=== PATIENT | female | born 1960 ===

== ENCOUNTER 2016-12-14 21:05 | Emergency (ER) | payer OTHER ==
[2016-12-14 21:12] VITALS: BMI 38.4
[2016-12-14 21:13] VITALS: RESP 20
--- NOTE | 2016-12-14 21:29 | C.PDOC ---
History Of Present Illness 56 y/o female presents to the ED with complaint of scratch to back of leg since this afternoon. . Pt states a friend's dog scratched the back of her left thigh and has had continuous bleeding since. No other complaints at this time. dog's immunizations up to date. pt not sure of last tetanus. Time Seen by Provider: 12/14/16 21:21 Chief Complaint (Nursing): Abnormal Skin Integrity History Per: Patient History/Exam Limitations: no limitations Onset/Duration Of Symptoms: Mins Current Symptoms Are (Timing): Still Present Location Of Injury: Left: Leg Severity: Mild Recent travel outside of the [place]: No Past Medical History Reviewed: Historical Data, Nursing Documentation, Vital Signs Vital Signs: Last Vital Signs Temp 97.8 F 12/14/16 21:12 Pulse 86 12/14/16 21:12 Resp 20 12/14/16 21:12 BP 164/111 H 12/14/16 21:12 Pulse Ox 99 12/14/16 22:41 Family History: States: Unknown Family Hx - Social History Hx Alcohol Use: No Hx Substance Use: No Review Of Systems Skin: Positive for: Other (scratch to back of left knee, bleeding) Physical Exam - Physical Exam Appears: Non-toxic, No Acute Distress Skin: Warm, Dry, No Rash, Other (3-4 cm horizontal scratch to distal posterior thigh, with 1 area with persistent oozing) Head: Atraumatic, Normacephalic Extremity: Normal ROM, No Swelling Neurological/Psych: Oriented x3, Normal Motor, Normal Sensation ED Course And Treatment O2 Sat by Pulse Oximetry: 99 (room air) Pulse Ox Interpretation: Normal Laceration - Laceration Repair thigh Wound Length (In cm): 3-4 cm shallow scrathc wiht 1 cm area of oozing. Description Of Wound: Linear Wound Cleansed With: Betadine Wound Examination: Irrigated With Saline Wound Closure: Suture Suture Technique And Material Used: Running, Interrupted, Nylon (2 sututes of 5- 0) Wound Complexity: Simple Medical Decision Making Medical Decision Making: pressure bandage applied for approximately 30 minutes, wound still oozing after this time. 2 sutures put into area with cessation of blleding. bacitracin and bandage applied. Disposition - Disposition Referrals: Marlin Diaz MD [Staff Provider] - Disposition: HOME/ ROUTINE Disposition Time: 22:43 Condition: IMPROVED Additional Instructions: Keep wound clean and dry. Take Augmentin as directed. Wash and dry wound daily , apply antibiotic ointment. Suture removal in one week. Return to ER for any sign of infection. 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 - Scribe Statement The provider has reviewed the documentation as recorded by the Scribjodi Varela All medical record entries made by the Brooks were at my direction and personally dictated by me. I have reviewed the chart and agree that the record accurately reflects my personal performance of the history, physical exam, medical decision making, and the department course for this patient. I have also personally directed, reviewed, and agree with the discharge instructions and disposition.
[2016-12-14] MEDS ORDERED: Bacitracin 500 Units/gm Oint Foilpak UD ONE (22:38)
[2016-12-14] MEDS ORDERED: Bacitracin 500 Units/gm Oint Foilpak UD TOP ONE (22:39)
[2016-12-14 22:57] VITALS: BP 158/91; PULSE 82; TEMP 97.3; O2SAT 98
== END 2016-12-14 22:57 | disposition home or self-care (01) ==
LOC: C.ER 21:05
DX: S70.312A Abrasion, left thigh, initial encounter (principal); X58.XXXA Exposure to other specified factors, initial encounter

== ENCOUNTER 2016-12-23 16:37 | Emergency (ER) | payer OTHER ==
[2016-12-23 16:37] VITALS: BMI 38.4
[2016-12-23 16:53] VITALS: TEMP 98.2
--- NOTE | 2016-12-23 17:02 | C.PDOC ---
History Of Present Illness 56 yo female come in for scheduled suture removal from Left posterior knee placed here in ED on 12/14/16 after laceration was closed with suture. Pt denies any active complaints, denies fever, chills, wound redness, discharge, denies weakness, sensory or vascular deficits to affected leg. Ambulate to ED for evaluation, not in any apparent distress. Pt admits, " did not take antibiotic was given here on 12/14/16 yet ". Time Seen by Provider: 12/23/16 16:55 Chief Complaint (Nursing): Suture/Staple Removal History Per: Patient Past Medical History Reviewed: Historical Data, Nursing Documentation, Vital Signs Vital Signs: Last Vital Signs Temp 98.2 F 12/23/16 16:51 Pulse 78 12/23/16 16:51 Resp 19 12/23/16 16:51 BP 145/100 H 12/23/16 16:51 Pulse Ox 99 12/23/16 17:03 - Medical History PMH: HTN Family History: States: No Known Family Hx - Social History Hx Alcohol Use: No Hx Substance Use: No - Immunization History Hx Tetanus Toxoid Vaccination: Yes Hx Influenza Vaccination: No Hx Pneumococcal Vaccination: No Review Of Systems Except As Marked, All Systems Reviewed And Found Negative. Constitutional: Negative for: Fever, Chills Eyes: Negative for: Vision Change ENT: Negative for: Throat Pain Cardiovascular: Negative for: Chest Pain, Palpitations Respiratory: Negative for: Cough, Shortness of Breath Gastrointestinal: Negative for: Nausea, Vomiting, Abdominal Pain Musculoskeletal: Negative for: Leg Pain Skin: Positive for: Lesions Neurological: Negative for: Weakness, Numbness, Altered Mental Status, Headache , Dizziness Physical Exam - Physical Exam Appears: Well, Non-toxic, No Acute Distress Skin: Normal Color, Warm, No Rash, Other (Left knee: posterior aspect well healed laceration closed with sutures#2, no edema, no erythema, no wound draining.) Extremity: Normal ROM (of left LE), No Tenderness, No Pedal Edema, No Calf Tenderness, No Deformity, No Swelling Neurological/Psych: Oriented x3, Normal Speech, Normal Motor, Normal Sensation, Normal Reflexes ED Course And Treatment O2 Sat by Pulse Oximetry: 99 Progress Note: On re-eval, pt is afebrile, hemodynamicalys table. NOn-toxic. AMbulaoty rin ED with stable gait. LLE: wound cleaned, sutures #2 removed without difficulty. Wound covered with sterile dressing. Pt advised to take abx as prescribed. Pt sts, " brought rx to pharmacy early today and will take abx". ref. to f/u with PMD as need. Disposition Counseled Patient/Family Regarding: Diagnosis, Need For Followup - Disposition Referrals: Marlin Diaz MD [Staff Provider] - Disposition: HOME/ ROUTINE Disposition Time: 17:02 Condition: STABLE Instructions: Stitches Removal (ED) - Clinical Impression Clinical Impression: Removal of suture
[2016-12-23 17:17] VITALS: BP 139/89; PULSE 75; RESP 18; O2SAT 97
== END 2016-12-23 17:15 | disposition home or self-care (01) ==
LOC: C.ER 16:37
DX: Z48.02 Encounter for removal of sutures (principal)